=== PATIENT | male | born 1980 | race Caucasian/White ===

== ENCOUNTER 2023-12-15 09:27 | Emergency (ER) | payer MEDICAID, OTHER ==
[~2023-12-15] VITALS: Ht 185.4 cm; Wt 97.1 kg
[2023-12-15 10:57] VITALS: BP 148/98; PULSE 82; RESP 16; TEMP 98.8; O2SAT 98
[2023-12-15] MEDS ORDERED: IBUP1TAB5 PO (12:01)
[2023-12-15] MEDS ORDERED: HYDR1TAB97 PO (12:02)
[2023-12-15] MEDS ORDERED: HYDR-4902 PO (12:31)
== END 2023-12-15 12:34 | disposition home or self-care (01) ==
LOC: ER 09:27
DX: S62.394A Other fracture of fourth metacarpal bone, right hand, initial encounter for closed fracture (principal); Z79.899 Other long term (current) drug therapy; W22.01XA Walked into wall, initial encounter; Y93.89 Activity, other specified; Y92.89 Other specified places as the place of occurrence of the external cause; Y99.8 Other external cause status
CPT/HCPCS: 73130

== ENCOUNTER 2025-05-30 10:38 | Inpatient (IN) | payer MEDICAID ==
[~2025-05-30] VITALS: Ht 185.4 cm; Wt 91.4 kg
[~2025-05-30 10:38] MED LIST: HYDR-4902 PO; IBUP1TAB5 PO
--- NOTE | 2025-05-30 11:04 | ED.PDOC ---
GI ASSESSMENT HPI Comments 44 y/o M, with PMHx of pancreatitis presents to the ED for CC of abdominal pain. Patient states, he has been experiencing epigastric abdominal pain that radiates to his LLQ with associated nausea/vomiting [id number]. Patient reports, being unable to keep down solids and has only been able to maintain liquids. Patient describes, emesis to be "green" and "bile" like in appearance. Patient denies constipation, diarrhea, fever, chills, weakness, or fatigue. No other symptoms or modifying factors are present at this time. Chief Complaint: Abdominal Pain Time Seen by MD: 11:00 Primary Care Provider: NONE Reviewed Notes: Nurses Notes, Medications, Allergies Allergies: Coded Allergies: NO KNOWN ALLERGIES (Unverified , 12/15/23) Home Meds Active Scripts Hydrocodone-Acetaminophen (Hydrocodone Bitartrate/AC 5-325 mg) 1 Tab Tab, 1 TAB PO Q6HPRN PRN for 7 Days, #28 TAB 0 Refills Prov:HONORIO RIVERA CHANNELER INSOLE 12/15/23 Ibuprofen Micronized (Ibuprofen) 600 Mg Tab, 600 MG PO TIDWM for 10 Days, #30 TAB 0 Refills Prov:HONORIO RIVERA CHANNELER INSOLE 12/15/23 Information Source: Patient Mode of Arrival: Ambulatory Timing: Weeks Duration: Since onset Prehospital treatment: None Vomitus: Watery Stool: Normal Severity: Moderate Recent: None Recent Hx of: None Pain Location: Epigastric, LLQ Modifying Factors: Nothing Associated sign and symptoms: Nausea, Vomiting, Abdominal Pain Past Medical History PAST MEDICAL HISTORY: Denies Surgical History: Denies all surgeries Family History Family History: Unknown Social History Smoker: Non-Smoker Alcohol: Occasionally Drugs: Denies Drug Use Lives In: Home Constitutional: denies: chills, diaphoresis, fatigue, fever, malaise, sweats, weakness, others EENTM: denies: blurred vision, double vision, ear bleeding, ear discharge, ear drainage, ear pain, ear ringing, eye pain, eye redness, hearing loss, mouth pain, mouth swelling, nasal discharge, nose bleeding, nose congestion, nose pain, photophobia, tearing, throat pain, throat swelling, voice changes, others Respiratory: denies: cough, hemoptysis, orthopnea, SOB at rest, shortness of breath, SOB with excertion, stridor, wheezing, others Cardiovascular: denies: chest pain, dizzy spells, diaphoresis, Dyspnea on exertion, edema, irregular heart beat, left arm pain, lightheadedness, palpitations, PND, syncope, others Gastrointestinal: reports: abdominal pain, nausea, vomiting; denies: abdomen distended, blood streaked bowels, constipated, diarrhea, dysphagia, difficulty swallowing, hematemesis, melena, poor appetite, poor fluid intake, rectal bleeding, rectal pain, others Genitourinary: denies: burning, dysuria, flank pain, frequency, hematuria, incontinence, penile discharge, penile sore, pain, testicle pain, testicle swelling, urgency, others Neurological: denies: dizziness, fainting, headache, left sided numbness, left sided weakness, numbness, paresthesia, pre-existing deficit, right sided numbness, right sided weakness, seizure, speech problems, tingling, tremors, weakness, others Musculoskeletal: denies: back pain, gout, joint pain, joint swelling, muscle pain, muscle stiffness, neck pain, others Integumetry: denies: bruises, change in color, change in hair/nails, dryness, laceration, lesions, lumps, rash, wounds, others Allergic/Immunocompromised: denies: Difficulty Healing, Frequent Infections, Hives, Itching, others Hematologic/Lymphatic: denies: anemia, blood clots, easy bleeding, easy bruising, swollen glands, others Endocrine: denies: excessive hunger, excessive sweating, excessive thirst, excessive urination, flushing, intolerance to cold, intolerance to heat, unexplained weight gain, unexplained weight loss, others Psychiatric: denies: anxiety, bipolar disorder, depression, hopeless, panic dis order, schizophrenia, sleepless, suicidal, others All Other Systems: Reviewed and Negative Physical Exam General Appearance: Moderate Distress HEENT: Normal ENT Inspection, Pharynx Normal, TMs Normal Neck: Full Range of Motion, Non-Tender, Normal, Normal Inspection Respiratory: Chest Non-Tender, Lungs Clear, No Accessory Muscle Use, No Respiratory Distress, Normal Breath Sounds Cardiovascular: No Edema, No JVD, No Murmur, No Gallop, Normal Peripheral Pulses, Regular Rate/Rhythm Breast Exam: Deferred Gastrointestinal: No Organomegaly, Non Tender, No Pulsatile Mass, Normal Bowel Sounds, Soft Genitalia: Deferred Pelvic: Deferred Rectal: Deferred Extremities: No calf tenderness, Normal capillary refill, Normal inspection, Normal range of motion, Non-tender, No pedal edema Musculoskeletal : Apperance: Normal Neurologic: Alert, winderman II-XII nml as Tested, No Motor Deficits, Normal Affect, Normal Mood, No Sensory Deficits Cerebellar Function: Normal Reflexes: Normal Skin: Dry, Normal Color, Warm Peripheral Pulses: 3+ Radial (R), 3+ Radial (L) Lymphatic: No Adenopathy Was a procedure done? Was a procedure done?: No GI differential Dx Differential Diagnosis: Constipation, Diverticular disease, Esophagitis, Gastritis/PUD, Gastroenteritis, Pancreatitis, Bacterial, Viral X-Ray, Labs, Meds, VS Vital Signs Date Time Temp Pulse Resp B/P (MAP) Pulse Ox O2 Delivery O2 Flow Rate FiO2 05/30/25 13:24 98.2 84 16 162/119 (133) 96 98.2 05/30/25 11:24 81 18 98 Room Air 05/30/25 11:24 98.6 81 18 145/113 (124) 98 98.6 05/30/25 10:39 98.3 91 18 168/87 96 98.3 Lab Test 05/30/25 11:15 05/30/25 11:11 Range/Units Urine Color Yellow Yellow Urine Clarity Clear Clear Urine pH 6.5 5.0-9.0 Urine Specific [place] 1.014 1.001-1.035 Urine Protein Negative Negative Urine Ketones Negative Negative Urine Blood Negative Negative /uL Urine Nitrite Negative Negative Urine Bilirubin Negative Negative Urine Urobilinogen Normal Negative mg/dL Urine Leukocyte Esterase Negative Negative /uL Urine RBC 1 0 - 3 /hpf Urine Microscopic WBC < 1 0-3 /HPF Urine Squamous Epithelial Cells None seen <5 /hpf Urine Bacteria None seen None Seen /hpf Urine Glucose Normal Normal mg/dL White Blood Count 4.9 4.4-10.8 10^3/uL Red Blood Count 4.80 4.5-5.90 10^6/uL Hemoglobin 15.8 13.5-17.5 g/dL Hematocrit 45.4 41.0-53.0 % Mean Corpuscular Volume 94.5 80.0-100.0 fL Mean Corpuscular Hemoglobin 32.9 H 28.0-32.0 pg Mean Corpuscular Hemoglobin Concent 34.8 32.0-36.0 g/dL Red Cell Distribution Width 14.9 H 11.8-14.3 % Platelet Count 185 140-450 10^3/uL Mean Platelet Volume 8.7 6.9-10.8 fL Neutrophils (%) (Auto) 68.7 37.0-80.0 % Lymphocytes (%) (Auto) 13.2 10.0-50.0 % Monocytes (%) (Auto) 16.4 H 0.0-12.0 % Eosinophils (%) (Auto) 0.7 0.0-7.0 % Basophils (%) (Auto) 1.0 0.0-2.0 % Neutrophils # (Auto) 3.4 1.6-8.6 10 ^3/uL Lymphocytes # (Auto) 0.6 0.4-5.4 10 ^3/uL Monocytes # (Auto) 0.8 0-1.3 10 ^3/uL Eosinophils # (Auto) 0 0-0.8 10 ^3/uL Basophils # (Auto) 0.1 0-0.2 10 ^3/uL Nucleated Red Blood Cells 0.0 % Sodium Level 139 136-145 mmol/L Potassium Level 3.9 3.5-5.1 mmol/L Chloride Level 100 98-107 mmol/L Carbon Dioxide Level 28 20-31 mmol/L Anion Gap 11 5-15 Blood Urea Nitrogen 6 L 9-23 mg/dL Creatinine 1.00 0.700-1.30 mg/dL Glomerular Filtration Rate Calc 96 >90 mL/min BUN/Creatinine Ratio 6.0 L 10.0-20.0 Serum Glucose 98 74-106 mg/dL Calcium Level 9.6 8.7-10.4 mg/dL Total Bilirubin 1.3 H 0.2-1.0 mg/dL Aspartate Amino Transferase (AST) 119 H 13-40 U/L Alanine Aminotransferase (ALT) 150 H 7-40 U/L Alkaline Phosphatase 76 46-116 U/L Total Protein 8.1 5.7-8.2 g/dL Albumin 4.7 3.2-4.8 g/dL Lipase 57 H 12-53 U/L Current Medications Medications (Trade) Dose Ordered Sig/Christiano Route Start Time Stop Time Status Last Admin Pantoprazole Sodium (Protonix) 40 mg ONCE ONCE IV 05/30/25 11:00 05/30/25 11:02 DC 05/30/25 11:26 Patient alert. Complaining of abdominal pain. Vitals stable. Answering questions. Possible gastritis. Was given Protonix. Lipase elevated. Explained to the patient. Continue monitoring. Time of 1ST Reevaluation: 11:30 Reevaluation 1ST: Unchanged Patient Education/Counseling: Diagnosis, Treatment Family Education/Counseling: No Family Present SEPSIS Sepsis Screen Date sepsis recognized/suspect: May 30, 2025 Time Sepsis recognized/suspect: 1039 Recent Procedure: No On Antibiotic Therapy: No Respiratory Rate >20: No Heart Rate >90: Yes Temp<36 C (96.8 F) or >38.3 C: No SBP <90 or MAP <65 mmHG: No New Acute Mental Status Change: No Is the patient on CPAP, BIPAP,: No Vital Signs Date Time Temp Pulse Resp B/P (MAP) Pulse Ox O2 Delivery O2 Flow Rate FiO2 05/30/25 13:24 98.2 84 16 162/119 (133) 96 98.2 05/30/25 11:24 81 18 98 Room Air 05/30/25 11:24 98.6 81 18 145/113 (124) 98 98.6 05/30/25 10:39 98.3 91 18 168/87 96 98.3 Laboratory Tests Test 05/30/25 11:11 White Blood Count 4.9 10^3/uL (4.4-10.8) Medications Medications Dose Ordered Sig/Christiano Route Start Time Stop Time Status Last Admin Dose Admin Pantoprazole Sodium 40 mg ONCE ONCE IV 05/30/25 11:00 05/30/25 11:02 DC 05/30/25 11:26 Departure 1 Departure Time of Disposition: 11:11 Impression: Primary Impression: Acute abdominal pain Additional Impression: Acute pancreatitis Qualified Codes: K85.90 - Acute pancreatitis without necrosis or infection, unspecified Disposition: ADMITTED INPATIENT Admit to: Med Surg Condition: Guarded Critical Care Note Critical Care Time?: No Stability Stability form required: No Heart Score Heart Score: Heart Score Response (Comments) Value History N/A 0 EKG N/A 0 Age N/A 0 Risk Factors N/A 0 Troponin N/A 0 Total 0 I personally scribed for YURI RANDOLPH MD ([email or web address]) on 05/30/25 at 11:04. Electronically submitted by Elodia [email or web address]). YURI RANDOLPH MD May 30, 2025 11:04
[2025-05-30] MEDS: PANTOPRAZOLE 40 MG/10 ML VIAL INJ IV ONE (11:26)
[2025-05-30 11:36] LABS: Hematocrit 45.4 % (41.0-53.0); Hemoglobin 15.8 g/dL (13.5-17.5); Mean Corpuscular Hemoglobin 32.9 pg (28.0-32.0); Mean Corpuscular Volume 94.5 fL (80.0-100.0); Nucleated Red Blood Cells % 0.0 %
[2025-05-30 11:52] LABS: Albumin 4.7 g/dL (3.2-4.8); Alkaline Phosphatase 76 U/L (46-116); Anion Gap 11 (5-15); BUN/Creatinine Ratio 6.0 (10.0-20.0); Calcium 9.6 mg/dL (8.7-10.4); Carbon Dioxide 28 mmol/L (20-31); Chloride 100 mmol/L (98-107); Glucose 98 mg/dL (74-106); Potassium 3.9 mmol/L (3.5-5.1); Sodium 139 mmol/L (136-145); Total Protein 8.1 g/dL (5.7-8.2)
[2025-05-30 11:59] LABS: Alanine Aminotransferase 150 U/L (7-40); Bilirubin, Total 1.3 mg/dL (0.2-1.0); Blood Urea Nitrogen 6 mg/dL (9-23); Lipase 57 U/L (12-53)
[2025-05-30 12:20] LABS: Urine Protein, UAD Negative (Negative)
[2025-05-30 16:10] VITALS: PULSE 108; RESP 19; O2SAT 98
[2025-05-30] MEDS: SODIUM CHLORIDE 0.9% 1,000 ML IV SCH (16:23)
[2025-05-30] MEDS: MORPHINE SULFATE 4 MG/ML SYR/VIAL IV PRN (16:23)
[2025-05-30] MEDS: ONDANSETRON HCL 4 MG/2 ML VIAL IM ONE (16:23)
--- NOTE | 2025-05-30 16:28 | DVHHPRES ---
History of Present Illness Resident Creating Document: LAYNE MAC RESIDENT History of Present Illness 44-year-old male with past medical history of chronic pancreatitis on lipase, IBS, hiatal hernia (7 cm) presented to the ER with the complaints of epigastric,left upper and left lower quadrant pain since last 2 weeks, associated with intractable nausea and vomiting. He reports the pain aggravates on eating especially with dry food, after vomiting and relieves by leaning forward and taking ibuprofen and Tylenol. The pain radiates to umbilicus before bowel movement. The patient describes the pain starts gradually and becomes sharp, currently 7/10 in intensity. He describes the vomiting is bilious and greenish in color, not mixed with blood The patient has recently done a colonoscopy with a single polyp, which was removed, with no other abnormalities. He has done CT scan of the abdomen with gastro group [facility], which was unremarkable except hiatal hernia. The patient measures his blood pressure at home which is high systolic in 140s and diastolic in 110s. 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 Past surgical history: Appendectomy, left hand metal placed due to left 4th metacarpal fracture, (however, previous x-ray shows right-sided 4th metacarpal fracture?) Home medications: Pancrelipase (Creon), pantoprazole Allergies: None Smoking history: Quit 17 years ago, before quitting 5 pack years Methamphetamine: Quit 7 years ago, before quitting occasional Marijuana: Quit 2 months ago, before quitting occasionally since age 19. Alcohol: Drinks over the weekends 2 cans at a time. Review of Systems Gastrointestinal: Nausea, Vomiting, Abdominal Pain, Diarrhea Allergies: Coded Allergies: NO KNOWN ALLERGIES (Unverified , 12/15/23) Medications Current Medications Medications Dose Ordered Sig/Christiano Route Start Time Stop Time Status Last Admin Dose Admin Sodium Chloride 1,000 ml @ 120 mls/hr Q8H20M IV 05/30/25 15:45 Morphine Sulfate 2 mg Q4HPRN PRN IV 05/30/25 15:45 Ondansetron HCl 4 mg Q8HPRN PRN IV 05/30/25 15:45 Pantoprazole Sodium 40 mg DAILY IV 05/31/25 10:00 UNV Exam Vital Signs Vital Signs Date Time Temp Pulse Resp B/P (MAP) Pulse Ox O2 Delivery O2 Flow Rate FiO2 05/30/25 15:54 97.8 102 16 153/97 (115) 100 97.8 05/30/25 11:24 Room Air Exam Pt is lying on bed General Appearance: Alert, Oriented X3, Cooperative, Mild distress HEENT: Atraumatic, Mucous membranes moist/pink Respiratory: Clear to auscultation, Normal air movement, No added sounds Cardiovascular: Regular rate, Normal S1, Normal S2, No murmurs Abdominal/ : Active bowel sounds, Soft, no distention, epigastric, left upper and lower quadrants tenderness Extremities: No edema, Normal pulses, No tenderness/swelling Skin: No Significant rash, except past surgical scars Neuro: Normal speech, sensorimotor deficits none Psych/Mental Status: Mental status NL, Mood NL Nurse was there as food and nutrition professor during examination Labs/Xrays Labs Test 05/30/25 11:15 05/30/25 11:11 Range/Units Urine Color Yellow Yellow Urine Clarity Clear Clear Urine pH 6.5 5.0-9.0 Urine Specific [place] 1.014 1.001-1.035 Urine Protein Negative Negative Urine Ketones Negative Negative Urine Blood Negative Negative /uL Urine Nitrite Negative Negative Urine Bilirubin Negative Negative Urine Urobilinogen Normal Negative mg/dL Urine Leukocyte Esterase Negative Negative /uL Urine RBC 1 0 - 3 /hpf Urine Microscopic WBC < 1 0-3 /HPF Urine Squamous Epithelial Cells None seen <5 /hpf Urine Bacteria None seen None Seen /hpf Urine Glucose Normal Normal mg/dL White Blood Count 4.9 4.4-10.8 10^3/uL Red Blood Count 4.80 4.5-5.90 10^6/uL Hemoglobin 15.8 13.5-17.5 g/dL Hematocrit 45.4 41.0-53.0 % Mean Corpuscular Volume 94.5 80.0-100.0 fL Mean Corpuscular Hemoglobin 32.9 H 28.0-32.0 pg Mean Corpuscular Hemoglobin Concent 34.8 32.0-36.0 g/dL Red Cell Distribution Width 14.9 H 11.8-14.3 % Platelet Count 185 140-450 10^3/uL Mean Platelet Volume 8.7 6.9-10.8 fL Neutrophils (%) (Auto) 68.7 37.0-80.0 % Lymphocytes (%) (Auto) 13.2 10.0-50.0 % Monocytes (%) (Auto) 16.4 H 0.0-12.0 % Eosinophils (%) (Auto) 0.7 0.0-7.0 % Basophils (%) (Auto) 1.0 0.0-2.0 % Neutrophils # (Auto) 3.4 1.6-8.6 10 ^3/uL Lymphocytes # (Auto) 0.6 0.4-5.4 10 ^3/uL Monocytes # (Auto) 0.8 0-1.3 10 ^3/uL Eosinophils # (Auto) 0 0-0.8 10 ^3/uL Basophils # (Auto) 0.1 0-0.2 10 ^3/uL Nucleated Red Blood Cells 0.0 % Sodium Level 139 136-145 mmol/L Potassium Level 3.9 3.5-5.1 mmol/L Chloride Level 100 98-107 mmol/L Carbon Dioxide Level 28 20-31 mmol/L Anion Gap 11 5-15 Blood Urea Nitrogen 6 L 9-23 mg/dL Creatinine 1.00 0.700-1.30 mg/dL Glomerular Filtration Rate Calc 96 >90 mL/min BUN/Creatinine Ratio 6.0 L 10.0-20.0 Serum Glucose 98 74-106 mg/dL Calcium Level 9.6 8.7-10.4 mg/dL Total Bilirubin 1.3 H 0.2-1.0 mg/dL Aspartate Amino Transferase (AST) 119 H 13-40 U/L Alanine Aminotransferase (ALT) 150 H 7-40 U/L Alkaline Phosphatase 76 46-116 U/L Total Protein 8.1 5.7-8.2 g/dL Albumin 4.7 3.2-4.8 g/dL Lipase 57 H 12-53 U/L SEPSIS Sepsis Screen Date sepsis recognized/suspect: May 30, 2025 Time Sepsis recognized/suspect: 1039 Recent Procedure: No On Antibiotic Therapy: No Respiratory Rate >20: No Heart Rate >90: Yes Temp<36 C (96.8 F) or >38.3 C: No SBP <90 or MAP <65 mmHG: No New Acute Mental Status Change: No Is the patient on CPAP, BIPAP,: No Physician Orders Admit (05/30/25 15:42) Code Status (05/30/25 15:42) Sodium Chloride 0.9% (05/30/25 15:45) Complete Blood Count (05/31/25 04:00) Comprehensive Metabolic Panel (05/31/25 04:00) Npo (Nothing By Mouth) Diet (05/30/25 Dinner) Ondansetron Hcl (Zofran) (05/30/25 15:45) Electrocardigram (05/30/25 15:42) Notify Of Changes From Base (05/30/25 15:42) Stool Bacterial Culture (05/30/25 15:50) Stool Wbc (05/30/25 15:50) Clostridium Difficile Toxin (05/30/25 15:50) Morphine Sulfate Injection (05/30/25 15:45) Ct Ab Pel Wo Con-No Oral Or Iv (05/30/25 16:18) Gallbladder (05/30/25 16:18) Lipid Panel (05/30/25 16:18) Acute Hepatitis Panel (05/30/25 16:18) Hepatitis C Antibody (05/30/25 16:18) Lipase (05/30/25 16:18) PTPTT (05/30/25 16:18) Drug Screen (05/30/25 16:18) Pantoprazole (Protonix) (05/31/25 10:00) Lactic Acid W/ Reflex Order (05/30/25 16:18) Lactate Dehydrogenase (05/30/25 16:18) Vital Signs Date Time Temp Pulse Resp B/P (MAP) Pulse Ox O2 Delivery O2 Flow Rate FiO2 05/30/25 15:54 97.8 102 16 153/97 (115) 100 97.8 05/30/25 13:24 98.2 84 16 162/119 (133) 96 98.2 05/30/25 11:24 81 18 98 Room Air 05/30/25 11:24 98.6 81 18 145/113 (124) 98 98.6 05/30/25 10:39 98.3 91 18 168/87 96 98.3 Laboratory Tests Test 05/30/25 11:11 White Blood Count 4.9 10^3/uL (4.4-10.8) Medications Medications Dose Ordered Sig/Christiano Route Start Time Stop Time Status Last Admin Dose Admin Pantoprazole Sodium 40 mg ONCE ONCE IV 05/30/25 11:00 05/30/25 11:02 DC 05/30/25 11:26 40 MG Assessment/Plan Assessment/Plan Acute pancreatitis Gastritis IV fluid Lipase CT abdomen and pelvis Lactic acid ordered, pending results IV pantoprazole IV ondansetron for nausea and vomiting IV morphine for intractable abdominal pain Lipid profile sent Dehydration due to diarrhea secondary to gastroenteritis IV fluid Stool WBC, bacterial culture, C diff sent Undiagnosed hypertension? Monitor blood pressures and labs Initiate antihypertensive if necessary GI prophylaxis: Pantoprazole DVT prophylaxis: Not indicated, patient is ambulatory Diet: NPO Goals of care discussed with the patient for more than 27 minutes: Full code status Case discussed with , Dr. Roblero, Dr. Fish, patient and RN Plan discussed with: Patient, Other (RN) My Orders Orders - ESTEFANIA,LAYNE RESIDENT Procedure Category Date Status Time Admit ADMIT 05/30/25 Transmitted 15:42 Code Status CODE 05/30/25 Transmitted 15:42 Sodium Chloride 0.9% PHA 05/30/25 In Process 15:45 Complete Blood Count LAB 05/31/25 Verified 04:00 Comprehensive LAB 05/31/25 Verified Metabolic Panel 04:00 Npo (Nothing By DIET 05/30/25 Transmitted Mouth) Diet Dinner Ondansetron Hcl PHA 05/30/25 In Process (Zofran) 15:45 Electrocardigram EKG 05/30/25 Verified 15:42 Notify Md Of Changes JASWINDER 05/30/25 Verified From Base 15:42 Stool Bacterial STALIN 05/30/25 Uncollected Culture 15:50 Stool Wbc LAB 05/30/25 Logged 15:50 Clostridium Difficile STALIN 05/30/25 Uncollected Toxin 15:50 Morphine Sulfate PHA 05/30/25 In Process Injection 15:45 Ct Ab Pel Wo Con-No CT 05/30/25 Logged Oral Or Iv 16:18 Gallbladder US 05/30/25 Logged 16:18 Lipid Panel LAB 05/30/25 Logged 16:18 Acute Hepatitis Panel LAB 05/30/25 Logged 16:18 Hepatitis C Antibody LAB 05/30/25 Logged 16:18 Lipase LAB 05/30/25 Logged 16:18 PTPTT LAB 05/30/25 Logged 16:18 Drug Screen LAB 05/30/25 Logged 16:18 Pantoprazole PHA 05/31/25 Transmitted (Protonix) 10:00 Lactic Acid W/ Reflex LAB 05/30/25 Logged Order 16:18 Lactate Dehydrogenase LAB 05/30/25 Logged 16:18 Date of Service: May 30, 2025 Billing Provider: JUSTINA ALVAREZ MD Common Visit Codes: 67776-BUNZATU INP/OBS CARE (HIGH) Secondary Visit Codes: 34160-IVBOPHPT CARE PLAN 30 MINUTES ESTEFANIALAYNE RESIDENT May 30, 2025 16:27 JUSTINA ALVAREZ MD Jun 06, 2025 20:19
[2025-05-30 16:39] VITALS: PULSE 79; RESP 16; O2SAT 97
--- NOTE | 2025-05-30 17:41 | DVH ---
Indication: r/o acute pancreatitis Technique: CT axial images of the abdomen and pelvis are obtained without contrast. Coronal and sagit priscilla reformats were obtained. Radiation Dose Information: CTDI volume is 15.94 mGy. Dose-length product is 882.69 mGy*cm Comparison: None FINDINGS: There is limited interpretation of the abdomen and pelvis without administration of intravenous contr ast. The lung bases demonstrate no pleural effusion. Adrenal glands, spleen, pancreas unremarkable in shape. Severe hepatic steatosis. No CT evidence fo r cholelithiasis. There is no hydronephrosis/ nephrolithiasis. Left renal cyst measuring 2.5 cm. Small hiatal hernia. Stomach partially distended. Small bowel loops are normal in caliber. Moderate volume stool in the colon. No secondary signs for appendicitis. Appendicolith measuring 4 mm in diameter. Bladder partially distended. No free pelvic fluid. No inguinal lymphadenopathy. No aggressive osseous process. IMPRESSION: Limited evaluation without contrast. No CT imaging features of acute pancreatitis. Severe hepatic steatosis. 4 mm appendicolith. No evidence for acute appendicitis. Hiatal hernia. Other findings as described.
[2025-05-30 17:49] VITALS: TEMP 97.8
[2025-05-30 17:55] LABS: Triglycerides 80 mg/dL (< 150)
[2025-05-30 17:57] LABS: Cholesterol 199 mg/dL (< 200)
[2025-05-30 18:08] LABS: INR 1.08 (0.9-1.15); Partial Thromboplastin Time 24.9 SEC (24.5-34.5); Prothrombin Time 11.4 sec (9.3-11.8)
[2025-05-30 18:14] LABS: HDL Cholesterol 69 mg/dL (40-59); Lipase 37 U/L (12-53)
--- NOTE | 2025-05-30 18:17 | DVH ---
ABDOMINAL ULTRASOUND CLINICAL HISTORY: Transaminitis TECHNIQUE: Multiple grayscale and color Doppler ultrasound images were obtained of the abdomen. WID: COMPARISON: CT abdomen pelvis from same day FINDINGS: Liver and Biliary System: Increased echogenicity, normal size measuring 16.5 cm. No focal hepatic observations. No intrahepatic bile duct dilatation. The common duct measures 0.47 cm at the rangel h epatis. The gallbladder is normal caliber without wall thickening or cholelithiasis.. Pancreas: Visualized portions are unremarkable. Kidneys: The right kidney is 11.1 cm . No hydronephrosis, increased echogenicity, shadowing stone, or focal lesion. IMPRESSION: 1. Hepatic steatosis. 2. No acute cholecystitis or biliary ductal dilatation.
[2025-05-30] MEDS ORDERED: PANC3600 PO (18:38)
[2025-05-30] MEDS ORDERED: PANC1CAP PO (18:38)
[2025-05-30] MEDS ORDERED: PANT40T PO (18:38)
[2025-05-30 20:00] VITALS: PULSE 63; RESP 16; O2SAT 97
[2025-05-30 21:00] VITALS: BP 142/101; PULSE 63; RESP 16; TEMP 98.1; O2SAT 97
[2025-05-30 21:47] LABS: Amphetamine Screen, Urine Neg (NEGATIVE); Barbiturate Scree,Urine Neg (NEGATIVE); Benzodiazephine Screen, Urine Neg (NEGATIVE); Cannabinoid Screen, Urine Neg (NEGATIVE); Cocaine Screen, Urine Neg (NEGATIVE); Opiate Scree,Urine Neg (NEGATIVE); Phencyclidine Screen, Urine Neg (NEGATIVE)
[2025-05-31] VITALS (7 sets, daily range): BP systolic 100–156; BP diastolic 69–108; PULSE 64–84; RESP 16–19; TEMP 97.6–98.2; O2SAT 96–99
[2025-05-31] MEDS: ONDANSETRON HCL 4 MG/2 ML VIAL IV PRN (00:48)
[2025-05-31] MEDS: METOCLOPRAMIDE HCL 5MG/ml INJ 2ml VIAL IV ONE (04:01)
[2025-05-31 07:44] LABS: Hematocrit 40.7 % (41.0-53.0); Hemoglobin 13.9 g/dL (13.5-17.5); Mean Corpuscular Hemoglobin 32.8 pg (28.0-32.0); Mean Corpuscular Volume 95.9 fL (80.0-100.0)
[2025-05-31 07:54] LABS: Alkaline Phosphatase 65 U/L (46-116); Anion Gap 9 (5-15); BUN/Creatinine Ratio 8.3 (10.0-20.0); Blood Urea Nitrogen 9 mg/dL (9-23); Calcium 8.8 mg/dL (8.7-10.4); Carbon Dioxide 28 mmol/L (20-31); Chloride 101 mmol/L (98-107); Glucose 86 mg/dL (74-106); Potassium 4.0 mmol/L (3.5-5.1); Sodium 138 mmol/L (136-145); Total Protein 6.9 g/dL (5.7-8.2)
[2025-05-31 07:55] LABS: Albumin 4.0 g/dL (3.2-4.8)
[2025-05-31 08:04] LABS: Alanine Aminotransferase 116 U/L (7-40); Bilirubin, Total 1.4 mg/dL (0.2-1.0)
[2025-05-31] MEDS: PANTOPRAZOLE 40 MG/10 ML VIAL INJ IV SCH (09:26)
[2025-05-31 10:00] LABS: Total Cells Counted 100.0 (100)
[2025-05-31 10:01] LABS: RBC Morphology Normal
[2025-05-31 10:20] LABS: Hepatitis B Surface Antigen Negative (Negative); Hepatitis C Antibody Negative (Negative)
[2025-05-31] MEDS ORDERED: METOCLOPRAMIDE HCL 5MG/ml INJ 2ml VIAL IV PRN (11:00)
[2025-05-31] MEDS: SUCRALFATE 1 GM/10 ML ORAL SUSP PO SCH (12:48)
--- NOTE | 2025-05-31 17:08 | DVH ---
Exam: CT CT AB PEL WITH IV CON ONLY History: epigastric pain, dysphagia, unintentional wt loss, h/omelena Comparison Study: None TECHNIQUE: Multidetector CT of the abdomen was performed from lung bases to pubic symphysis. Imaging was performed without IV contrast. Axial, coronal and sagittal multiplanar reformats were obtained fr om the axial data set by the technologist. Radiation Dose Information: CT Dose: CTDI volume is 9.62 mGy. Dose-length product is 610.76 mGy*cm FINDINGS: Evaluation of solid organs is limited due to lack of intravenous contrast use. Findings: Lung Bases: No acute or significant lung base finding. Normal heart size. No pleural or pericardial effusion. Liver: The liver is normal in size. No focal lesions. Findings consistent with hepatic steatosis. Gallbladder and Biliary Tree: No calcified gallstones. Spleen: Unremarkable Pancreas: The pancreas is grossly normal in appearance. Adrenal Glands: Unremarkable Kidneys: Kidneys are grossly normal without calculi or hydronephrosis. 0.5 cm left cortical cyst Bladder: Grossly unremarkable for degree of distention. Bowel: The stomach is grossly normal in appearance. Small hiatal hernia Small bowel and colon are nor mal in caliber and distribution. The appendix is not visualized; however, no secondary findings of a cute appendicitis identified. Ascites: Absent Lymphadenopathy: No mesenteric, retroperitoneal or periportal lymphadenopathy. Abdominal Wall and Mesentery: Unremarkable. Vasculature: The visualized abdominal aorta is normal in size and caliber. Evaluation of abdominal a nd pelvic vessels is limited due to lack of intravenous contrast. Pelvic Organs: Unremarkable Musculoskeletal: No aggressive focal bony lesions, acute fractures or dislocation. Vertical striation s noted T 11 and T12 may represent osseous hemangiomas. No compressed vertebra. Soft tissues: Unremarkable IMPRESSION: 1. Small hiatal hernia with thickened wall of the distal esophagus. May represent esophagitis from re current reflux. 2. Pancreas appears normal 3. Hepatic steatosis 4. 2 cm left renal cyst 5. No findings to suggest bowel obstruction. 6. No calcified gallstones. HS:Y Radiation optimization: All CT scans at this facility use at least one of these dose optimization aliza hniques: automated exposure control mA and/or kV adjustment per patient size (includes targeted exam s where dose is matched to clinical indication) or iterative reconstruction.
--- NOTE | 2025-05-31 17:19 | DVHPNRES ---
Progress Note Date Seen: May 31, 2025 Resident Creating Document: LAYNE MAC RESIDENT Medical Necessity Reason Pt with a Central, PICC or Fol: No Subjective Review of Systems 44-year-old male with past medical history of chronic pancreatitis on lipase, IBS, hiatal hernia (7 cm) presented to the ER with the complaints of epigastric,left upper and left lower quadrant pain since last 2 weeks, associated with intractable nausea and vomiting. He reports the pain aggravates on eating especially with dry food, after vomiting and relieves by leaning forward and taking ibuprofen and Tylenol. The pain radiates to umbilicus before bowel movement. The patient describes the pain starts gradually and becomes sharp, currently 7/10 in intensity. He describes the vomiting is bilious and greenish in color, not mixed with blood The patient has recently done a colonoscopy with a single polyp, which was removed, with no other abnormalities. He has done CT scan of the abdomen with gastro group [facility] [place], which was unremarkable except hiatal hernia. The patient measures his blood pressure at home which is high systolic in 140s and diastolic in 110s. 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 The patient reports losing 20 lb weight unintentionally within last 2 months. He reports having difficulty swallowing dry food. He reports having dark stool, with a black spots floating on the toilet water. But the stool is not tarry black. Past surgical history: Appendectomy, Right hand metal placed due to right 4th metacarpal fracture, Home medications: Pancrelipase (Creon), pantoprazole Allergies: None Smoking history: Quit 17 years ago, before quitting 5 pack years Methamphetamine: Quit 7 years ago, before quitting occasional Marijuana: Quit 2 months ago, before quitting occasionally since age 19. Alcohol: Drinks over the weekends 2 cans at a time. The patient was seen and examined at bedside today. He reports improvement in his nausea, he could tolerate full liquid diet. However he reports having episodes of severe abdominal pain, partially relieved by IV morphine. The treatment plan was discussed with the patient. No new complaints reported today. Objective vital signs Vital Sign Date Time Temp Pulse Resp B/P (MAP) Pulse Ox O2 Delivery O2 Flow Rate FiO2 05/31/25 16:29 98.1 64 17 155/107 (123) 99 98.1 05/31/25 08:15 Room Air* 0 21 Total Intake and Output 05/30/25 05/30/25 05/31/25 15:00 23:00 07:00 Intake Total 1000 ml Balance 1000 ml medications Current Medications Medications Dose Ordered Sig/Christiano Route Start Time Stop Time Status Last Admin Dose Admin Sodium Chloride 1,000 ml @ 120 mls/hr Q8H20M IV 05/30/25 15:45 05/31/25 09:35 120 MLS/HR Morphine Sulfate 2 mg Q4HPRN PRN IV 05/30/25 15:45 05/31/25 15:01 2 MG Ondansetron HCl 4 mg Q8HPRN PRN IV 05/30/25 15:45 05/31/25 00:48 4 MG Pantoprazole Sodium 40 mg DAILY IV 05/31/25 10:00 05/31/25 09:26 40 MG Amlodipine Besylate 5 mg DAILY PO 05/31/25 10:00 05/31/25 12:49 5 MG Sucralfate 1 gm TID@0600,1130,2200 PO 05/31/25 11:30 05/31/25 12:48 1 GM Metoclopramide HCl 5 mg Q8HPRN PRN IV 05/31/25 11:00 Examination Exam Pt is lying on bed General Appearance: Alert, Oriented X3, Cooperative, Mild distress HEENT: Atraumatic, Mucous membranes moist/pink Respiratory: Clear to auscultation, Normal air movement, No added sounds Cardiovascular: Regular rate, Normal S1, Normal S2, No murmurs Abdominal/ : Active bowel sounds, Soft, no distention, epigastric, left upper and lower quadrants tenderness Extremities: No edema, Normal pulses, No tenderness/swelling Skin: No Significant rash, except past surgical scars Neuro: Normal speech, sensorimotor deficits none Psych/Mental Status: Mental status NL, Mood NL Nurse was there as financial center manager during examination laboratory and microbiology Laboratory Tests 05/31/25 07:05 Test 05/31/25 07:05 Range/Units Serum Glucose 86 74-106 mg/dL Labs and/or images reviewed: Labs reviewed by me, Image(s) reviewed by me Problem List/Assessment/Plan Problem List/Assessment/Plan Acute pancreatitis Gastritis with alarm symptoms IV fluid Lipase CT abdomen and pelvis Lactic acid ordered, pending results IV pantoprazole IV ondansetron for nausea and vomiting IV morphine for intractable abdominal pain Lipid profile sent CT abdomen pelvis: Hepatic steatosis, 4 mm appendicolith, hiatal hernia, no acute findings, no pancreatitis. Gallbladder ultrasound: Hepatic steatosis, no gallstones or cholecystitis. CT abdomen and pelvis with contrast ordered. Dehydration due to diarrhea secondary to gastroenteritis IV fluid Stool WBC, bacterial culture, C diff sent Undiagnosed hypertension? Monitor blood pressures and labs Initiate antihypertensive if necessary GI prophylaxis: Pantoprazole DVT prophylaxis: Not indicated, patient is ambulatory Diet: NPO Goals of care discussed with the patient for more than 27 minutes: Full code status Case discussed with , Dr. Roblero, Jhajj, patient and RN Plan discussed with: Patient, Other (RN) Plan discussed with: Patient, Other (RN) Date of Service: May 31, 2025 Billing Provider: JUSTINA ALVAREZ MD Common Visit Codes: [id number] INP/OBS CARE(HIGH) LAYNE MAC RESIDENT May 31, 2025 17:19 JUSTINA ALVAREZ MD Jun 06, 2025 20:20
[2025-06-01 01:04] VITALS: BP 144/98; PULSE 63; RESP 19; TEMP 97.9; O2SAT 98
[2025-06-01 05:00] VITALS: BP 143/98; PULSE 81; RESP 20; TEMP 97.2; O2SAT 98
[2025-06-01 07:57] LABS: Hematocrit 42.7 % (41.0-53.0); Hemoglobin 15.0 g/dL (13.5-17.5); Mean Corpuscular Hemoglobin 33.4 pg (28.0-32.0); Mean Corpuscular Volume 95.4 fL (80.0-100.0); Nucleated Red Blood Cells % 0.0 %
[2025-06-01 08:10] LABS: Albumin 4.2 g/dL (3.2-4.8); Alkaline Phosphatase 68 U/L (46-116); Anion Gap 11 (5-15); BUN/Creatinine Ratio 5.9 (10.0-20.0); Bilirubin, Total 1.1 mg/dL (0.2-1.0); Calcium 9.1 mg/dL (8.7-10.4); Carbon Dioxide 27 mmol/L (20-31); Chloride 100 mmol/L (98-107); Glucose 89 mg/dL (74-106); Potassium 4.0 mmol/L (3.5-5.1); Sodium 138 mmol/L (136-145); Total Protein 7.3 g/dL (5.7-8.2)
[2025-06-01 08:12] LABS: Alanine Aminotransferase 121 U/L (7-40); Blood Urea Nitrogen 6 mg/dL (9-23)
[2025-06-01 09:00] VITALS: BP 147/101; PULSE 59; RESP 18; TEMP 98; O2SAT 97
[2025-06-01 13:00] VITALS: BP 142/102; PULSE 64; RESP 18; TEMP 98; O2SAT 97
--- NOTE | 2025-06-01 14:08 | DVHINCON2 ---
GI Consult Consult Note GI consult note Date of Consultation: 06/01/2025 Chief Complaint: Acid reflux, likely gastritis with alarm symptoms weight loss, dysphagia, melena Referring Physician: Dr. Fish H&P: 44-year-old male with past medical history of chronic pancreatitis, IBS, hiatal hernia 7 cm presented with worsening symptoms of epigastric and left-sided abdominal pain for the past two weeks patient also has nausea and vomiting denies hematemesis. Patient has been symptoms on and off for the past two years and has seen gastro group status post colonoscopy with one polyp removed status post EGD diagnosed with hiatal hernia. Patient also complaining of loose stool which is dark in color stool test pending Patient is in the process of being referred to [facility] for possible hiatal hernia repair Past Medical History: Chronic pancreatitis, IBS, hiatal hernia Past Surgical History: Appendectomy, left hand metal placed left 4th metatarsal carpal fracture Social History: Smoking history: Quit 17 years ago, before quitting 5 pack years Methamphetamine: Quit 7 years ago, before quitting occasional Marijuana: Quit 2 months ago, before quitting occasionally since age 19. Alcohol: Drinks over the weekends 2 cans at a time. Family History: Noncontributory Review of Systems: Constitutional: no fever, chill, weight loss HEENT: no eye pain, no hearing loss, no oral lesion, no scleral icterus Heart: no chest pain, no chest pressure Lung: no cough, no dyspnea with exertion Abdomen: see HPI Physical exam: General: NAD, AAOX3 Chest: lung terrell clear to auscultation Heart: RRR, no murmur Abdomen: non-distended, no tenderness to palpation, +BS Labs: Labs Test 06/01/25 07:02 05/31/25 07:05 05/30/25 17:17 05/30/25 11:15 Range/Units White Blood Count 4.8 4.4-10.8 10^3/uL Red Blood Count 4.48 L 4.5-5.90 10^6/uL Hemoglobin 15.0 13.5-17.5 g/dL Hematocrit 42.7 41.0-53.0 % Mean Corpuscular Volume 95.4 80.0-100.0 fL Mean Corpuscular Hemoglobin 33.4 H 28.0-32.0 pg Mean Corpuscular Hemoglobin Concent 35.0 32.0-36.0 g/dL Red Cell Distribution Width 14.5 H 11.8-14.3 % Platelet Count 156 140-450 10^3/uL Mean Platelet Volume 9.1 6.9-10.8 fL Neutrophils (%) (Auto) 66.6 37.0-80.0 % Lymphocytes (%) (Auto) 14.3 10.0-50.0 % Monocytes (%) (Auto) 16.0 H 0.0-12.0 % Eosinophils (%) (Auto) 2.5 0.0-7.0 % Basophils (%) (Auto) 0.6 0.0-2.0 % Neutrophils # (Auto) 3.2 1.6-8.6 10 ^3/uL Lymphocytes # (Auto) 0.7 0.4-5.4 10 ^3/uL Monocytes # (Auto) 0.8 0-1.3 10 ^3/uL Eosinophils # (Auto) 0.1 0-0.8 10 ^3/uL Basophils # (Auto) 0 0-0.2 10 ^3/uL Nucleated Red Blood Cells 0.0 % Sodium Level 138 136-145 mmol/L Potassium Level 4.0 3.5-5.1 mmol/L Chloride Level 100 98-107 mmol/L Carbon Dioxide Level 27 20-31 mmol/L Anion Gap 11 5-15 Blood Urea Nitrogen 6 L 9-23 mg/dL Creatinine 1.02 0.700-1.30 mg/dL Glomerular Filtration Rate Calc 94 >90 mL/min BUN/Creatinine Ratio 5.9 L 10.0-20.0 Serum Glucose 89 74-106 mg/dL Calcium Level 9.1 8.7-10.4 mg/dL Total Bilirubin 1.1 H 0.2-1.0 mg/dL Aspartate Amino Transferase (AST) 85 H 13-40 U/L Alanine Aminotransferase (ALT) 121 H 7-40 U/L Alkaline Phosphatase 68 46-116 U/L Total Protein 7.3 5.7-8.2 g/dL Albumin 4.2 3.2-4.8 g/dL Differential Total Cells Counted 100.0 100 Neutrophils % (Manual) 59 37.0-80.0 Band Neutrophils % (Manual) 1 Lymphocytes % (Manual) 18 10.0-50.0 Monocytes % (Manual) 18 H 0-12 Eosinophils % (Manual) 3 0-7 Basophils % (Manual) 0 0.0-2.0 Metamyelocytes % (manual) 0 Myelocytes % (Manual) 0 Promyelocytes % (Manual) 0 Blast Cells % (Manual) 0 Reactive Lymphocytes 1 Platelet Estimate Adequate Red Blood Cell Morphology Normal Prothrombin Time 11.4 9.3-11.8 sec Prothrombin Time INR 1.08 0.9-1.15 Activated Partial Thromboplast Time 24.9 24.5-34.5 SEC Lactic Acid Level 1.1 0.4-2.0 mmol/L Triglycerides Level 80 < 150 mg/dL Cholesterol Level 199 < 200 mg/dL LDL Cholesterol 120 H < 100 mg/dL HDL Cholesterol 69 H 40-59 mg/dL Lipase 37 12-53 U/L Urine Color Yellow Yellow Urine Clarity Clear Clear Urine pH 6.5 5.0-9.0 Urine Specific Leroy 1.014 1.001-1.035 Urine Protein Negative Negative Urine Ketones Negative Negative Urine Blood Negative Negative /uL Urine Nitrite Negative Negative Urine Bilirubin Negative Negative Urine Urobilinogen Normal Negative mg/dL Urine Leukocyte Esterase Negative Negative /uL Urine RBC 1 0 - 3 /hpf Urine Microscopic WBC < 1 0-3 /HPF Urine Squamous Epithelial Cells None seen <5 /hpf Urine Bacteria None seen None Seen /hpf Urine Glucose Normal Normal mg/dL Urine Opiates Screen Neg NEGATIVE Urine Fentanyl Screen Neg NEGATIVE Urine Barbiturates Screen Neg NEGATIVE Urine Phencyclidine Screen Neg NEGATIVE Urine Amphetamines Screen Neg NEGATIVE Urine Benzodiazepines Screen Neg NEGATIVE Urine Cocaine Screen Neg NEGATIVE Urine Cannabinoids Screen Neg NEGATIVE Test 05/30/25 11:11 Range/Units Lactate Dehydrogenase 197 120-246 U/L Hepatitis A IgM Antibody Negative Hepatitis B Surface Antigen Negative Negative Hepatitis B Core IgM Antibody Negative Negative Hepatitis C Antibody Negative Negative Imaging: CT abdomen pelvis IMPRESSION: 1. Small hiatal hernia with thickened wall of the distal esophagus. May represent esophagitis from recurrent reflux. 2. Pancreas appears normal 3. Hepatic steatosis 4. 2 cm left renal cyst 5. No findings to suggest bowel obstruction. 6. No calcified gallstones. Assessment: Abdominal pain History of hiatal hernia Intractable nausea and vomiting Diarrhea History of pancreatitis History of amphetamine and marijuana use Plan: Discussed with Dr. Tadeo - Pt will be scheduled for an EGD tomorrow 06/02/2025. Pt was informed of the risks (bleeding, infection, perforation, reaction to sedation medications and cardiopulmonary arrest) and benefit and is agreeable to undergo the procedures. Stool studies pending Protonix and Zofran Plan discussed with patient and RN Thank you for this consult Date of Service: Jun 01, 2025 Billing Provider: MAXINE CHAUDHRY Common Visit Codes: CONSULT ONLY Consultation Codes: [id number] CONSULT <60MIN MAXINE CHAUDHRY Jun 01, 2025 14:07
[2025-06-01 17:27] VITALS: BP 153/101; PULSE 62; RESP 18; TEMP 98.2; O2SAT 98
[2025-06-01] MEDS: LOSARTAN POTASSIUM 25 MG TAB PO ONE (18:11)
--- NOTE | 2025-06-01 20:12 | DVHPNRES ---
Progress Note Date Seen: Jun 01, 2025 Resident Creating Document: LAYNE MAC RESIDENT Medical Necessity Reason Pt with a Central, PICC or Fol: No Subjective Review of Systems 44-year-old male with past medical history of chronic pancreatitis on lipase, IBS, hiatal hernia (7 cm) presented to the ER with the complaints of epigastric,left upper and left lower quadrant pain since last 2 weeks, associated with intractable nausea and vomiting. He reports the pain aggravates on eating especially with dry food, after vomiting and relieves by leaning forward and taking ibuprofen and Tylenol. The pain radiates to umbilicus before bowel movement. The patient describes the pain starts gradually and becomes sharp, currently 7/10 in intensity. He describes the vomiting is bilious and greenish in color, not mixed with blood The patient has recently done a colonoscopy with a single polyp, which was removed, with no other abnormalities. He has done CT scan of the abdomen with gastro group [facility] [place], which was unremarkable except hiatal hernia. The patient measures his blood pressure at home which is high systolic in 140s and diastolic in 110s. 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 The patient reports losing 20 lb weight unintentionally within last 2 months. He reports having difficulty swallowing dry food. He reports having dark stool, with a black spots floating on the toilet water. But the stool is not tarry black. Past surgical history: Appendectomy, Right hand metal placed due to right 4th metacarpal fracture, Home medications: Pancrelipase (Creon), pantoprazole Allergies: None Smoking history: Quit 17 years ago, before quitting 5 pack years Methamphetamine: Quit 7 years ago, before quitting occasional Marijuana: Quit 2 months ago, before quitting occasionally since age 19. Alcohol: Drinks over the weekends 2 cans at a time. The patient was seen and examined at bedside today. He reports feeling nausea. However, his abdominal pain improved. No new complaints reported today. Objective vital signs Vital Sign Date Time Temp Pulse Resp B/P (MAP) Pulse Ox O2 Delivery O2 Flow Rate FiO2 05/31/25 16:29 98.1 64 17 155/107 (123) 99 98.1 05/31/25 08:15 Room Air* 0 21 Total Intake and Output 05/30/25 05/30/25 05/31/25 15:00 23:00 07:00 Intake Total 1000 ml Balance 1000 ml medications Current Medications Medications Dose Ordered Sig/Christiano Route Start Time Stop Time Status Last Admin Dose Admin Sodium Chloride 1,000 ml @ 120 mls/hr Q8H20M IV 05/30/25 15:45 05/31/25 09:35 120 MLS/HR Morphine Sulfate 2 mg Q4HPRN PRN IV 05/30/25 15:45 05/31/25 15:01 2 MG Ondansetron HCl 4 mg Q8HPRN PRN IV 05/30/25 15:45 05/31/25 00:48 4 MG Pantoprazole Sodium 40 mg DAILY IV 05/31/25 10:00 05/31/25 09:26 40 MG Amlodipine Besylate 5 mg DAILY PO 05/31/25 10:00 05/31/25 12:49 5 MG Sucralfate 1 gm TID@0600,1130,2200 PO 05/31/25 11:30 05/31/25 12:48 1 GM Metoclopramide HCl 5 mg Q8HPRN PRN IV 05/31/25 11:00 Examination laboratory and microbiology Laboratory Tests 05/31/25 07:05 Test 05/31/25 07:05 Range/Units Serum Glucose 86 74-106 mg/dL Labs and/or images reviewed: Labs reviewed by me, Image(s) reviewed by me Problem List/Assessment/Plan Problem List/Assessment/Plan Objective vital signs Vital Sign Date Time Temp Pulse Resp B/P (MAP) Pulse Ox O2 Delivery O2 Flow Rate FiO2 06/01/25 19:25 72 18 152/110 06/01/25 17:27 98.2 98 98.2 06/01/25 08:00 Room Air* 0 21 Total Intake and Output 05/31/25 05/31/25 06/01/25 15:00 23:00 07:00 Intake Total 1000 ml 1300 ml 650 ml Balance 1000 ml 1300 ml 650 ml medications Current Medications Medications Dose Ordered Sig/Christiano Route Start Time Stop Time Status Last Admin Dose Admin Morphine Sulfate 2 mg Q4HPRN PRN IV 05/30/25 15:45 06/01/25 19:25 2 MG Ondansetron HCl 4 mg Q8HPRN PRN IV 05/30/25 15:45 05/31/25 00:48 4 MG Pantoprazole Sodium 40 mg DAILY IV 05/31/25 10:00 06/01/25 09:41 40 MG Amlodipine Besylate 5 mg DAILY PO 05/31/25 10:00 06/01/25 09:41 5 MG Sucralfate 1 gm TID@0600,1130,2200 PO 05/31/25 11:30 06/01/25 12:07 1 GM Metoclopramide HCl 5 mg Q8HPRN PRN IV 05/31/25 11:00 Examination Exam Pt is lying on bed General Appearance: Alert, Oriented X3, Cooperative, Mild distress HEENT: Atraumatic, Mucous membranes moist/pink Respiratory: Clear to auscultation, Normal air movement, No added sounds Cardiovascular: Regular rate, Normal S1, Normal S2, No murmurs Abdominal/ : Active bowel sounds, Soft, no distention, epigastric, left upper and lower quadrants tenderness Extremities: No edema, Normal pulses, No tenderness/swelling Skin: No Significant rash, except past surgical scars Neuro: Normal speech, sensorimotor deficits none Psych/Mental Status: Mental status NL, Mood NL Nurse was there as assessment expert during examination laboratory and microbiology Laboratory Tests 06/01/25 07:02 Test 06/01/25 07:02 Range/Units Serum Glucose 89 74-106 mg/dL Labs and/or images reviewed: Labs reviewed by me, Image(s) reviewed by me Problem List/Assessment/Plan Problem List/Assessment/Plan Acute pancreatitis Gastritis with alarm symptoms IV fluid Lipase CT abdomen and pelvis Lactic acid ordered, pending results IV pantoprazole IV ondansetron for nausea and vomiting IV morphine for intractable abdominal pain CT abdomen pelvis: Hepatic steatosis, 4 mm appendicolith, hiatal hernia, no acute findings, no pancreatitis. Gallbladder ultrasound: Hepatic steatosis, no gallstones or cholecystitis. CT abdomen and pelvis with contrast : new findings: esophagitis GI consulted, EGD tomorrow on 06/01/2025. Hepatitis panel negative. Dehydration due to diarrhea secondary to gastroenteritis IV fluid Stool WBC, bacterial culture, C diff sent Hyperlipidemia Lipid profile:TG80,[id number],LDL 120, HDL 69 advise on healthy diet Undiagnosed hypertension? Monitor blood pressures and labs Initiate antihypertensive if necessary GI prophylaxis: Pantoprazole DVT prophylaxis: Not indicated, patient is ambulatory Diet: NPO Goals of care discussed with the patient for more than 27 minutes: Full code status Case discussed with , Dr. Roblero, Jhajj, patient and RN Plan discussed with: Patient, Other (RN) Plan discussed with: Patient, Other (RN) My Orders My Orders Orders - LAYNE MAC Procedure Category Date Status Time Basic Metabolic Panel LAB 06/02/25 Verified 04:00 Complete Blood Count LAB 06/02/25 Verified 04:00 Date of Service: Jun 01, 2025 Billing Provider: JUSTINA ALVAREZ MD Common Visit Codes: [id number] INP/OBS CARE(HIGH) LAYNE MAC Jun 01, 2025 20:12 JUSTINA ALVAREZ MD Jun 06, 2025 20:21
[2025-06-01 20:50] VITALS: BP 149/110; PULSE 72; RESP 16; TEMP 97.3; O2SAT 97
[2025-06-02 04:41] VITALS: BP 143/87; PULSE 79; RESP 19; TEMP 98.1; O2SAT 97
[2025-06-02 04:55] LABS: Hematocrit 44.6 % (41.0-53.0); Hemoglobin 15.4 g/dL (13.5-17.5); Mean Corpuscular Hemoglobin 33.0 pg (28.0-32.0); Mean Corpuscular Volume 95.7 fL (80.0-100.0)
[2025-06-02 05:14] LABS: Anion Gap 8 (5-15); Carbon Dioxide 28 mmol/L (20-31); Chloride 101 mmol/L (98-107); Potassium 4.3 mmol/L (3.5-5.1); Sodium 137 mmol/L (136-145)
[2025-06-02 05:15] LABS: Calcium 9.4 mg/dL (8.7-10.4)
[2025-06-02 05:20] LABS: BUN/Creatinine Ratio 4.7 (10.0-20.0); Glucose 101 mg/dL (74-106)
[2025-06-02 05:24] LABS: Blood Urea Nitrogen 5 mg/dL (9-23)
[2025-06-02 08:17] VITALS: BP 115/113; PULSE 62; RESP 20; TEMP 97.7; O2SAT 96
[2025-06-02 08:50] LABS: Total Cells Counted 100.0 (100)
[2025-06-02 12:48] VITALS: BP 144/105; PULSE 80; RESP 18; TEMP 98.1; O2SAT 94
[2025-06-02] MEDS ORDERED: LIDOCAINE 1% INJ PF 5ML AMP ONE (13:56)
[2025-06-02] MEDS ORDERED: ONDANSETRON HCL 4 MG/2 ML VIAL ONE (13:56)
[2025-06-02] MEDS ORDERED: METOCLOPRAMIDE HCL 5MG/ml INJ 2ml VIAL ONE (13:56)
[2025-06-02] MEDS ORDERED: PROPOFOL 10 MG/ML 20 ML IV ONE (13:59)
[2025-06-02 14:05] VITALS: RESP 13; O2SAT 93
--- NOTE | 2025-06-02 14:07 | DVHOP2 ---
Operative Report DATE OF OPERATION: 06/02/25 PROCEDURE: Upper Endoscopy with biopsy. PREOPERATIVE INDICATION: The patient is a 44 -year-old male undergoing endoscopy for chronic GERD and epigastric pain POSTOPERATIVE DIAGNOSES: 1. 6 cm sliding-type hiatal hernia with no significant esophagitis at this time 2. Mild gastritis of the proximal stomach and mild to moderate duodenitis of the duodenal bulb and postbulbar area PROCEDURE PERFORMED BY: Rod Tadeo GI NURSE: Kristyn SCOPE: Olympus videoendoscope. ASA CLASS: 3 PREOPERATIVE MEDICATIONS: Mac sedation, Chandan kang PROCEDURE IN DETAIL: After obtaining an informed consent, the patient was placed on left lateral decubitus position. The patient was then sedated with the above medications. A bite block was placed between his teeth. The endoscope was then passed through the oropharynx, into the esophagus, and through the stomach and pylorus up to the second and third part of the duodenum. The endoscope was then withdrawn. The 2nd and 3rd part of the duodenal were normal. Duodenal bulb and postbulbar area showed [id number] duodenitis with some hyperemia The pre-pyloric area antrum and body showed minimal gastritis. On retroflexion the patient had mild gastropathy of the proximal stomach, a hiatal hernia was noted. Duodenal and gastric biopsies were obtained. The endoscope was then withdrawn into the distal esophagus where the patient had a 6-7 cm sliding-type hiatal hernia There was no significant erosive esophagitis. Patient did have some angulation of the distal esophagus above the hiatal hernia The remaining distal and proximal esophagus and oropharynx were unremarkable The patient tolerated the procedure well without difficulty. COMPLICATIONS : None SPECIMENS: Duodenal biopsies Gastric biopsies DISPOSITION: Transfer back to the floor Stable PLAN: 1. Await for biopsy result 2. Will place pt on Protonix 40 mg bid 3. Resume GI soft diet advance as tolerated 4. Carafate 1 g p.o. twice a day 5. DC aspirin NSAIDs smoking alcohol 6. Outpatient follow up with me to review results discuss further management including the option of an elective Evangelist fundoplication ROD TADEO MD Jun 02, 2025 14:07
[2025-06-02 17:00] VITALS: BP 144/105; PULSE 78; RESP 20; TEMP 98; O2SAT 98
--- NOTE | 2025-06-02 18:43 | DVHPNRES ---
Progress Note Date Seen: Jun 02, 2025 Resident Creating Document: LAYNE MAC RESIDENT Medical Necessity Reason Pt with a Central, PICC or Fol: No Subjective Review of Systems 44-year-old male with past medical history of chronic pancreatitis on lipase, IBS, hiatal hernia (7 cm) presented to the ER with the complaints of epigastric,left upper and left lower quadrant pain since last 2 weeks, associated with intractable nausea and vomiting. He reports the pain aggravates on eating especially with dry food, after vomiting and relieves by leaning forward and taking ibuprofen and Tylenol. The pain radiates to umbilicus before bowel movement. The patient describes the pain starts gradually and becomes sharp, currently 7/10 in intensity. He describes the vomiting is bilious and greenish in color, not mixed with blood The patient has recently done a colonoscopy with a single polyp, which was removed, with no other abnormalities. He has done CT scan of the abdomen with gastro group [facility], which was unremarkable except hiatal hernia. The patient measures his blood pressure at home which is high systolic in 140s and diastolic in 110s. 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 The patient reports losing 20 lb weight unintentionally within last 2 months. He reports having difficulty swallowing dry food. He reports having dark stool, with a black spots floating on the toilet water. But the stool is not tarry black. Past surgical history: Appendectomy, Right hand metal placed due to right 4th metacarpal fracture, Home medications: Pancrelipase (Creon), pantoprazole Allergies: None Smoking history: Quit 17 years ago, before quitting 5 pack years Methamphetamine: Quit 7 years ago, before quitting occasional Marijuana: Quit 2 months ago, before quitting occasionally since age 19. Alcohol: Drinks over the weekends 2 cans at a time. The patient was seen and examined at bedside today. The patient reports feeling better. He was scheduled for EGD later today. No new complaints reported. Objective vital signs Vital Sign Date Time Temp Pulse Resp B/P (MAP) Pulse Ox O2 Delivery O2 Flow Rate FiO2 06/02/25 17:00 98.0 78 20 144/105 (118) 98 98.0 06/02/25 14:05 Room Air 06/02/25 14:05 93 06/02/25 08:00 0 Total Intake and Output 06/01/25 06/01/25 06/02/25 15:00 23:00 07:00 Intake Total 1500 ml 300 ml Balance 1500 ml 300 ml medications Current Medications Medications Dose Ordered Sig/Christiano Route Start Time Stop Time Status Last Admin Dose Admin Morphine Sulfate 2 mg Q4HPRN PRN IV 05/30/25 15:45 06/02/25 16:01 2 MG Ondansetron HCl 4 mg Q8HPRN PRN IV 05/30/25 15:45 05/31/25 00:48 4 MG Amlodipine Besylate 5 mg DAILY PO 05/31/25 10:00 06/02/25 10:52 5 MG Metoclopramide HCl 5 mg Q8HPRN PRN IV 05/31/25 11:00 Sucralfate 1 gm BID@0600,2200 PO 06/02/25 22:00 Pantoprazole Sodium 40 mg BID@0600,1700 PO 06/03/25 06:00 Examination Pt is lying on bed General Appearance: Alert, Oriented X3, Cooperative, Mild distress HEENT: Atraumatic, Mucous membranes moist/pink Respiratory: Clear to auscultation, Normal air movement, No added sounds Cardiovascular: Regular rate, Normal S1, Normal S2, No murmurs Abdominal/ : Active bowel sounds, Soft, no distention, no tenderness Extremities: No edema, Normal pulses, No tenderness/swelling Skin: No Significant rash, except past surgical scars Neuro: Normal speech, sensorimotor deficits none Psych/Mental Status: Mental status NL, Mood NL Nurse was there as pressroom foreman during examination laboratory and microbiology Laboratory Tests 06/02/25 04:45 Test 06/02/25 04:45 Range/Units Serum Glucose 101 74-106 mg/dL Labs and/or images reviewed: Labs reviewed by me, Image(s) reviewed by me Problem List/Assessment/Plan Problem List/Assessment/Plan Acute intractable abdominal pain likely due to acute gastritis Sliding type Hiatal hernia Severe hepatic steatosis Acute pancreatitis, ruled Gastritis with alarm symptoms Dehydration due to diarrhea secondary to gastroenteritis Lipase mildly elevated, IV ondansetron for nausea and vomiting IV morphine for intractable abdominal pain CT abdomen pelvis: Hepatic steatosis, 4 mm appendicolith, hiatal hernia, no acute findings, no pancreatitis. Gallbladder ultrasound: Hepatic steatosis, no gallstones or cholecystitis. CT abdomen and pelvis with contrast : new findings: esophagitis GI consulted, EGD completed today on 06/02/2025: No significant esophagitis, hiatal hernia and duodenitis. Continue p.o. pantoprazole b.i.d., Carafate 1 g p.o. b.i.d Hepatitis panel negative. Hyperlipidemia advised on healthy diet Hypertensive heart disease started on amlodipine GI prophylaxis: Pantoprazole DVT prophylaxis: Not indicated, patient is ambulatory Diet: Advanced as tolerated Goals of care discussed with the patient for more than 27 minutes: Case discussed with Dr. Alvarez Plan discussed with: Patient, Other (RN) My Orders My Orders Orders - LAYNE MAC Procedure Category Date Status Time Sucralfate Susp PHA 06/02/25 In Process (Carafate Susp) 22:00 Pantoprazole Tablet PHA 06/03/25 In Process (Protonix Tablet) 06:00 Notify Provider NOTICE 06/02/25 Transmitted Malnutrition 17:40 Nutritional NOURISH 06/02/25 Transmitted Supplements 17:40 Dietary NOTICE 06/02/25 Transmitted Recommendations 17:40 Dietary Evaluation Review Recommendations by RD: Protein Supplementation Comments: 1) Initiate Ensure High Protein qd 2) Advance to cardiac diet when medically feasible 3) Encourage optimal PO intake 4) Follow-up with gastroenterology and cardiology 5) Continue to monitor I&O, labs, and skin integrity Expected Outcomes/Goals: 1) appetite and labs to improve 2) diet to advance 3) GI symptoms to resolve 4) f/u in 3-5 days Date of Service: Jun 02, 2025 Billing Provider: JUSTINA ALVAREZ MD Common Visit Codes: [id number] INP/OBS CARE(MOD) LAYNE MAC Jun 02, 2025 18:43 ALCON SANCHEZ RESIDENT Jun 02, 2025 19:27 JUSTINA ALVAREZ MD Jun 06, 2025 20:21
[2025-06-02] MEDS: SUCRALFATE 1 GM/10 ML ORAL SUSP PO SCH (20:43)
[2025-06-02 21:00] VITALS: BP 133/99; PULSE 82; RESP 17; TEMP 97.6; O2SAT 97
[2025-06-03 05:00] VITALS: BP 130/89; PULSE 82; RESP 19; TEMP 97.8; O2SAT 98
[2025-06-03 05:53] LABS: Hematocrit 44.7 % (41.0-53.0); Hemoglobin 15.3 g/dL (13.5-17.5); Mean Corpuscular Hemoglobin 32.8 pg (28.0-32.0); Mean Corpuscular Volume 95.5 fL (80.0-100.0)
[2025-06-03 06:15] LABS: Chloride 100 mmol/L (98-107); Potassium 4.2 mmol/L (3.5-5.1); Sodium 138 mmol/L (136-145)
[2025-06-03 06:18] LABS: Anion Gap 11 (5-15); Carbon Dioxide 27 mmol/L (20-31)
[2025-06-03 06:19] LABS: Calcium 9.6 mg/dL (8.7-10.4)
[2025-06-03] MEDS: PANTOPRAZOLE 40 MG TAB PO SCH (06:20)
[2025-06-03 06:24] LABS: BUN/Creatinine Ratio 7.1 (10.0-20.0); Glucose 97 mg/dL (74-106)
[2025-06-03 06:43] LABS: Blood Urea Nitrogen 8 mg/dL (9-23)
[2025-06-03 08:11] LABS: Total Cells Counted 100.0 (100)
[2025-06-03 08:12] LABS: RBC Morphology Normal
[2025-06-03 08:47] VITALS: BP 150/101; PULSE 98; RESP 12; TEMP 98.1; O2SAT 98
[2025-06-03] MEDS ORDERED: SUCR1SUS26 PO (10:02)
[2025-06-03] MEDS ORDERED: AML5T PO (10:02)
[2025-06-03] MEDS ORDERED: PANT40T PO (10:02)
[2025-06-03 12:54] VITALS: BP 128/93; PULSE 74; RESP 16; TEMP 97.5; O2SAT 95
[2025-06-03 13:00] VITALS: BP 128/93; PULSE 74; RESP 16; TEMP 97.5; O2SAT 95
[2025-06-03 13:05] VITALS: TEMP 36.4
--- NOTE | 2025-06-03 14:13 | DVHDSRES ---
Discharge Summary Date of Admission Resident Creating Document: BOB INIGUEZ RESIDENT May 30, 2025 at 15:42 Date of Discharge: Jun 03, 2025 Admitting Diagnosis Pancreatitis Labs/Diagnostic Data: Laboratory Results Test 06/03/25 07:30 06/03/25 05:24 06/01/25 07:02 05/30/25 17:17 Stool for White Cells Rare White Blood Count 4.8 10^3/uL (4.4-10.8) Red Blood Count 4.68 10^6/uL (4.5-5.90) Hemoglobin 15.3 g/dL (13.5-17.5) Hematocrit 44.7 % (41.0-53.0) Mean Corpuscular Volume 95.5 fL (80.0-100.0) Mean Corpuscular Hemoglobin 32.8 pg (28.0-32.0) Mean Corpuscular Hemoglobin Concent 34.3 g/dL (32.0-36.0) Red Cell Distribution Width 14.3 % (11.8-14.3) Platelet Count 177 10^3/uL (140-450) Mean Platelet Volume 9.0 fL (6.9-10.8) Neutrophils (%) (Auto) % (37.0-80.0) Lymphocytes (%) (Auto) % (10.0-50.0) Monocytes (%) (Auto) % (0.0-12.0) Basophils (%) (Auto) % (0.0-2.0) Neutrophils # (Auto) 10 ^3/uL (1.6-8.6) Lymphocytes # (Auto) 10 ^3/uL (0.4-5.4) Monocytes # (Auto) 10 ^3/uL (0-1.3) Differential Total Cells Counted 100.0 (100) Neutrophils % (Manual) 60 (37.0-80.0) Band Neutrophils % (Manual) 1 Lymphocytes % (Manual) 15 (10.0-50.0) Monocytes % (Manual) 20 (0-12) Eosinophils % (Manual) 2 (0-7) Basophils % (Manual) 0 (0.0-2.0) Metamyelocytes % (manual) 0 Myelocytes % (Manual) 0 Promyelocytes % (Manual) 0 Blast Cells % (Manual) 0 Reactive Lymphocytes 2 Platelet Estimate Adequate Red Blood Cell Morphology Normal Sodium Level 138 mmol/L (136-145) Potassium Level 4.2 mmol/L (3.5-5.1) Chloride Level 100 mmol/L (98-107) Carbon Dioxide Level 27 mmol/L (20-31) Anion Gap 11 (5-15) Blood Urea Nitrogen 8 mg/dL (9-23) Creatinine 1.13 mg/dL (0.700-1.30) Glomerular Filtration Rate Calc 83 mL/min (>90) BUN/Creatinine Ratio 7.1 (10.0-20.0) Serum Glucose 97 mg/dL (74-106) Calcium Level 9.6 mg/dL (8.7-10.4) Eosinophils (%) (Auto) 2.5 % (0.0-7.0) Eosinophils # (Auto) 0.1 10 ^3/uL (0-0.8) Basophils # (Auto) 0 10 ^3/uL (0-0.2) Nucleated Red Blood Cells 0.0 % Total Bilirubin 1.1 mg/dL (0.2-1.0) Aspartate Amino Transferase (AST) 85 U/L (13-40) Alanine Aminotransferase (ALT) 121 U/L (7-40) Alkaline Phosphatase 68 U/L (46-116) Total Protein 7.3 g/dL (5.7-8.2) Albumin 4.2 g/dL (3.2-4.8) Prothrombin Time 11.4 sec (9.3-11.8) Prothrombin Time INR 1.08 (0.9-1.15) Activated Partial Thromboplast Time 24.9 SEC (24.5-34.5) Lactic Acid Level 1.1 mmol/L (0.4-2.0) Triglycerides Level 80 mg/dL (< 150) Cholesterol Level 199 mg/dL (< 200) LDL Cholesterol 120 mg/dL (< 100) HDL Cholesterol 69 mg/dL (40-59) Lipase 37 U/L (12-53) Test 05/30/25 11:15 05/30/25 11:11 Urine Color Yellow (Yellow) Urine Clarity Clear (Clear) Urine pH 6.5 (5.0-9.0) Urine Specific [place] 1.014 (1.001-1.035) Urine Protein Negative (Negative) Urine Ketones Negative (Negative) Urine Blood Negative /uL (Negative) Urine Nitrite Negative (Negative) Urine Bilirubin Negative (Negative) Urine Urobilinogen Normal mg/dL (Negative) Urine Leukocyte Esterase Negative /uL (Negative) Urine RBC 1 /hpf (0 - 3) Urine Microscopic WBC < 1 /HPF (0-3) Urine Squamous Epithelial Cells None seen /hpf (<5) Urine Bacteria None seen /hpf (None Seen) Urine Glucose Normal mg/dL (Normal) Urine Opiates Screen Neg (NEGATIVE) Urine Fentanyl Screen Neg (NEGATIVE) Urine Barbiturates Screen Neg (NEGATIVE) Urine Phencyclidine Screen Neg (NEGATIVE) Urine Amphetamines Screen Neg (NEGATIVE) Urine Benzodiazepines Screen Neg (NEGATIVE) Urine Cocaine Screen Neg (NEGATIVE) Urine Cannabinoids Screen Neg (NEGATIVE) Lactate Dehydrogenase 197 U/L (120-246) Hepatitis A IgM Antibody Negative Hepatitis B Surface Antigen Negative (Negative) Hepatitis B Core IgM Antibody Negative (Negative) Hepatitis C Antibody Negative (Negative) Other Laboratory Tests 06/03/25 05:24 Brief Hx & Hospital Course: This is a 44-year-old male with past medical history of chronic pancreatitis on lipase, IBS, hiatal hernia (7 cm) presented to the ER with the complaints of epigastric,left upper and left lower quadrant pain since last 2 weeks, associated with intractable nausea and vomiting. He reported the pain aggravated on eating especially with dry food, after vomiting and relieved by leaning forward and taking ibuprofen and Tylenol. The pain radiated to umbilicus before bowel movement. The patient described the pain started gradually and became sharp, currently 7/10 in intensity. He described the vomiting is bilious and greenish in color, not mixed with blood The patient had recently done a colonoscopy with a single polyp, which was removed, with no other abnormalities. He had done CT scan of the abdomen with [facility], which was unremarkable except for hiatal hernia. The patient measured his blood pressure at home which is high systolic in 140s and diastolic in 110s. The patient reported losing 20 lb weight unintentionally within last 2 months. He reported having difficulty swallowing dry food. He reports having dark stool, with a black spots floating on the toilet water. But the stool is not tarry black. Past surgical history: Appendectomy, Right hand metal placed due to right 4th metacarpal fracture, Home medications: Pancrelipase (Creon), pantoprazole Allergies: None Smoking history: Quit 17 years ago, before quitting 5 pack years Methamphetamine: Quit 7 years ago, before quitting occasional Marijuana: Quit 2 months ago, before quitting occasionally since age 19. Alcohol: Drinks over the weekends 2 cans at a time. Throughout the patient's hospitalization he had significant clinical improvement from admission, he was treated with IV Protonix, a CT abdomen of the pelvis showed liver steatosis, hiatal hernia, rule out pancreatitis. Lipase levels were mildly elevated and down trended. A repeat CT abdomen with contrast show distal esophagitis. GI doctor was consulted which performed an EGD which demonstrated a hiatal hernia, mild gastritis and qvja-je-[id number] duodenitis. Patient was started back on Protonix p.o. b.i.d. and Carafate p.o. b.i.d.. Patient stated having improvement with these medications. He was comprehensively counseled on lifestyle modifications such as avoiding spicy food, small frequent meals, last meal to be had 2-3 hours before bedtime. General Appearance: Alert, Oriented X3, Cooperative, Mild distress HEENT: Atraumatic, Mucous membranes moist/pink Respiratory: Clear to auscultation, Normal air movement, No added sounds Cardiovascular: Regular rate, Normal S1, Normal S2, No murmurs Abdominal/ : Active bowel sounds, Soft, no distention, no tenderness Extremities: No edema, Normal pulses, No tenderness/swelling Skin: No Significant rash, except past surgical scars Neuro: Normal speech, sensorimotor deficits none Psych/Mental Status: Mental status NL, Mood NL Nurse was there as home health care provider during examination Patient will be discharge home, will continue home medications as prescribed. He will continue taking Protonix 40 mg p.o. b.i.d., Carafate 1 g p.o. b.i.d., amlodipine 5 mg p.o. q.d., we will consulted on lifestyle modifications. Follow- up with PCP in 1-2 weeks and with GI doctor from [facility]. Patient verbalized understanding and agree with the DC plan, we spent over 30 minutes explaining the plan. Case was discussed with Dr. Arreola Consults/Reason for consult GI doctor was consulted due to esophagitis Operations or Procedures [address] [address] Ph: [phone] DIAGNOSTIC IMAGING Diagnostic Imaging Report : [id number] Signed PATIENT: LEENA AMOSACCT: [id number] UNIT: [id number] : 1980 LOC: OVERFLOW ROOM / BED: 1010-ER / A AGE / SEX: 44 / M ADM STATUS: ADM IN SERVICE 1618 ORDERING PHYSICIAN: LAYNE MAC RESIDENT PROCEDURE(s): ABPL - CT AB PEL WO CON-NO ORAL OR IV REASON: r/o acute pancreatitis ORDER NUMBER(s): [id number], ACCESSION NUMBER(s): [id number] Indication: r/o acute pancreatitis Technique: CT axial images of the abdomen and pelvis are obtained without contrast. Coronal and sagittal reformats were obtained. Radiation Dose Information: CTDI volume is 15.94 mGy. Dose-length product is 882.69 mGy*cm Comparison: None FINDINGS: There is limited interpretation of the abdomen and pelvis without administration of intravenous contrast. The lung bases demonstrate no pleural effusion. Adrenal glands, spleen, pancreas unremarkable in shape. Severe hepatic steatosis. No CT evidence for cholelithiasis. There is no hydronephrosis/ nephrolithiasis. Left renal cyst measuring 2.5 cm. Small hiatal hernia. Stomach partially distended. Small bowel loops are normal in caliber. Moderate volume stool in the colon. No secondary signs for appendicitis. Appendicolith measuring 4 mm in diameter. Bladder partially distended. No free pelvic fluid. No inguinal lymphadenopathy. No aggressive osseous process. IMPRESSION: Limited evaluation without contrast. No CT imaging features of acute pancreatitis. Severe hepatic steatosis. 4 mm appendicolith. No evidence for acute appendicitis. Hiatal hernia. Other findings as described. ATED BY: SHAHNAZ POZO MD DICTATED DATE/TIME: 05/30/251741 SIGNED BY: SHAHNAZ POZO MD SIGNED DATE/TIME: 05/30/251741 CC: [place] [address] Ph: [phone] DIAGNOSTIC IMAGING Diagnostic Imaging Report : [id number] Signed PATIENT: LEENA AMOSACCT: [id number] UNIT: [id number] : 1980 LOC: [facility] ROOM / BED: 0286 / A AGE / SEX: 44 / M ADM STATUS: ADM IN SERVICE 1618 ORDERING PHYSICIAN: LAYNE MAC RESIDENT PROCEDURE(s): GBUS - GALLBLADDER REASON: Transaminitis ORDER NUMBER(s): [id number], ACCESSION NUMBER(s): [id number] ABDOMINAL ULTRASOUND CLINICAL HISTORY: Transaminitis TECHNIQUE: Multiple grayscale and color Doppler ultrasound images were obtained of the abdomen. WID: COMPARISON: CT abdomen pelvis from same day FINDINGS: Liver and Biliary System: Increased echogenicity, normal size measuring 16.5 cm. No focal hepatic observations. No intrahepatic bile duct dilatation. The common duct measures 0.47 cm at the rangel hepatis. The gallbladder is normal caliber without wall thickening or cholelithiasis.. Pancreas: Visualized portions are unremarkable. Kidneys: The right kidney is 11.1 cm . No hydronephrosis, increased echogenicity, shadowing stone, or focal lesion. IMPRESSION: 1. Hepatic steatosis. 2. No acute cholecystitis or biliary ductal dilatation. ATED BY: ABEL SANTIAGO MD DICTATED DATE/TIME: 05/30/251814 SIGNED BY: ABEL SANTIAGO MD SIGNED DATE/TIME: 05/30/251814 CC: [place] [address] Ph: [phone] DIAGNOSTIC IMAGING Diagnostic Imaging Report : [id number] Signed PATIENT: LEENA AMOSACCT: [id number] UNIT: [id number] : 1980 LOC: [facility] ROOM / BED: [address] [place] [address] AGE / SEX: 44 / M ADM STATUS: ADM IN SERVICE [id number] ORDERING PHYSICIAN: ALCON SANCHEZ PROCEDURE(s): ABPLIV - CT AB PEL WITH IV CON ONLY REASON: epigastric pain, dysphagia, unintentional wt loss, h/omelena ORDER NUMBER(s): [id number], ACCESSION NUMBER(s): [id number] Exam: CT CT AB PEL WITH IV CON ONLY History: epigastric pain, dysphagia, unintentional wt loss, h/omelena Comparison Study: None TECHNIQUE: Multidetector CT of the abdomen was performed from lung bases to pubic symphysis. Imaging was performed without IV contrast. Axial, coronal and sagittal multiplanar reformats were obtained from the axial data set by the technologist. Radiation Dose Information: CT Dose: CTDI volume is 9.62 mGy. Dose-length product is 610.76 mGy*cm FINDINGS: Evaluation of solid organs is limited due to lack of intravenous contrast use. Findings: Lung Bases: No acute or significant lung base finding. Normal heart size. No pleural or pericardial effusion. Liver: The liver is normal in size. No focal lesions. Findings consistent with hepatic steatosis. Gallbladder and Biliary Tree: No calcified gallstones. Spleen: Unremarkable Pancreas: The pancreas is grossly normal in appearance. Adrenal Glands: Unremarkable Kidneys: Kidneys are grossly normal without calculi or hydronephrosis. 0.5 cm left cortical cyst Bladder: Grossly unremarkable for degree of distention. Bowel: The stomach is grossly normal in appearance. Small hiatal hernia Small bowel and colon are normal in caliber and distribution. The appendix is not visualized; however, no secondary findings of acute appendicitis identified. Ascites: Absent Lymphadenopathy: No mesenteric, retroperitoneal or periportal lymphadenopathy. Abdominal Wall and Mesentery: Unremarkable. Vasculature: The visualized abdominal aorta is normal in size and caliber. Evaluation of abdominal and pelvic vessels is limited due to lack of intravenous contrast. Pelvic Organs: Unremarkable Musculoskeletal: No aggressive focal bony lesions, acute fractures or dislocation. Vertical striations noted T 11 and T12 may represent osseous hemangiomas. No compressed vertebra. Soft tissues: Unremarkable IMPRESSION: 1. Small hiatal hernia with thickened wall of the distal esophagus. May represent esophagitis from recurrent reflux. 2. Pancreas appears normal 3. Hepatic steatosis 4. 2 cm left renal cyst 5. No findings to suggest bowel obstruction. 6. No calcified gallstones. HS:Y Radiation optimization: All CT scans at this facility use at least one of these dose optimization techniques: automated exposure control mA and/or kV adjustment per patient size (includes targeted exams where dose is matched to clinical indication) or iterative reconstruction. ATED BY: AURE CUELLAR Jr., DO DICTATED DATE/TIME: 05/31/251704 SIGNED BY: AURE CUELLAR Jr., SIGNED DATE/TIME: 05/31/250 CC: Patient: LEENA AMOS Acct: [id number] : 1980 Loc: [facility] Age/Sex: 44/M Room: 0286 / Bed: A Attending Phy: LAYNE MAC RESIDENT Operative Report DATE OF OPERATION: 06/02/25 PROCEDURE: Upper Endoscopy with biopsy. PREOPERATIVE INDICATION: The patient is a 44 -year-old male undergoing endoscopy for chronic GERD and epigastric pain POSTOPERATIVE DIAGNOSES: 1. 6 cm sliding-type hiatal hernia with no significant esophagitis at this time 2. Mild gastritis of the proximal stomach and mild to moderate duodenitis of the duodenal bulb and postbulbar area PROCEDURE PERFORMED BY: Rod Siddiqui GI NURSE: Kristyn SCOPE: Olympus videoendoscope. ASA CLASS: 3 PREOPERATIVE MEDICATIONS: Mac sedation, Chandan kang PROCEDURE IN DETAIL: After obtaining an informed consent, the patient was placed on left lateral decubitus position. The patient was then sedated with the above medications. A bite block was placed between his teeth. The endoscope was then passed through the oropharynx, into the esophagus, and through the stomach and pylorus up to the second and third part of the duodenum. The endoscope was then withdrawn. The 2nd and 3rd part of the duodenal were normal. Duodenal bulb and postbulbar area showed [id number] duodenitis with some hyperemia The pre-pyloric area antrum and body showed minimal gastritis. On retroflexion the patient had mild gastropathy of the proximal stomach, a hiatal hernia was noted. Duodenal and gastric biopsies were obtained. The endoscope was then withdrawn into the distal esophagus where the patient had a 6-7 cm sliding-type hiatal hernia There was no significant erosive esophagitis. Patient did have some angulation of the distal esophagus above the hiatal hernia The remaining distal and proximal esophagus and oropharynx were unremarkable The patient tolerated the procedure well without difficulty. COMPLICATIONS : None SPECIMENS: Duodenal biopsies Gastric biopsies DISPOSITION: Transfer back to the floor Stable PLAN: 1. Await for biopsy result 2. Will place pt on Protonix 40 mg bid 3. Resume GI soft diet advance as tolerated 4. Carafate 1 g p.o. twice a day 5. DC aspirin NSAIDs smoking alcohol 6. Outpatient follow up with me to review results discuss further management including the option of an elective Evangelist fundoplication ROD SIDDIQUI MD Jun 02, 2025 14:07 DICTATED BY:ROD SIDDIQUI MD DICTATED DATE/TIME:06/02/25 140 ELECTRONICALLY SIGNED BY:ROD SIDDIQUI MD 06/02/25 140 ELECTRONICALLY CO-SIGNED BY: Condition at Discharge: Good Final Diagnosis/Problems List Acute intractable abdominal pain likely due to acute gastritis Esophagitis Sliding type Hiatal hernia Severe hepatic steatosis Acute pancreatitis, ruled out Gastritis, acute Duodenitis Dehydration due to diarrhea secondary to gastroenteritis Hyperlipidemia Primary hypertension, uncontrolled Discharge Disposition: Home Discharge Instruct/Medications Diet: Regular Activity: No Restrictions, As Tolerated Follow Up/Referral: fu with pcp in 1 week fu with gastro group in 1-2 week fu with surgeon Medications: continue protonix 40mg po bid carafete 1g po bid Scheduled Amlodipine Besylate (Norvasc Tablet), 5 MG PO DAILY Pantoprazole Sodium Sesquihydr (Pantoprazole Sodium), 1 TAB PO BID, (Reported) Pantoprazole Sodium Sesquihydr (Pantoprazole Sodium), 40 MG PO BID@0600,1700 Sucralfate (Carafate Susp), 1 GM PO BID@0600,2200 Miscellaneous Medications Pancreatic Enzymes (Pancreaze 29688-97242 Unit), PO, (Reported) Pancrelipase (Lipase-Protease- (Creon), PO, (Reported) Discharge Statement: "Patient was advised to return to the ER or call 911 if any headaches, dizziness, shortness of breath, chest pain, abdominal pain, bleeding, fevers, or worsening of medical condition. Patient was counseled about treatment plan, medications, possible side effects, patientverbalized understanding. All questions were answered to the best of my ability. This discharge took greater then 30 minutes in planning, reviewing documentation, counseling the patient, and discussing with other team members." ASSESSMENT ASSESSMENT Assessment esophagitis Date of Service: Jun 03, 2025 Billing Provider: JUSTINA ARREOLA MD Common Visit Codes: 15354-SUQ/OBS DISCH DAY >30min BOB INIGUEZ RESIDENT Jun 03, 2025 14:13 JUSTINA ARREOLA MD Jun 06, 2025 20:20
== END 2025-06-03 13:20 | disposition home or self-care (01) | DRG 241 ==
LOC: ER 10:38 → OVERFLOW 15:42 → WEST WING 17:50
PROVIDERS: ADMIT Internal Medicine Geriatric Medicine; ATTEND Internal Medicine Geriatric Medicine
PROC: 0DB68ZX Excision of Stomach, Via Natural or Artificial Opening Endoscopic, Diagnostic (ICD-10-PCS; 2025-06-02)
PROC: 0DB98ZX Excision of Duodenum, Via Natural or Artificial Opening Endoscopic, Diagnostic (ICD-10-PCS; principal; 2025-06-02 13:52)
DX: K29.70 Gastritis, unspecified, without bleeding (principal); K29.80 Duodenitis without bleeding; K21.00 Gastro-esophageal reflux disease with esophagitis, without bleeding; K44.9 Diaphragmatic hernia without obstruction or gangrene; K76.0 Fatty (change of) liver, not elsewhere classified; I10 Essential (primary) hypertension; K86.1 Other chronic pancreatitis; N28.1 Cyst of kidney, acquired; E78.5 Hyperlipidemia, unspecified; E86.0 Dehydration; K52.9 Noninfective gastroenteritis and colitis, unspecified; Z90.49 Acquired absence of other specified parts of digestive tract; Z87.891 Personal history of nicotine dependence
CPT/HCPCS: 36415; 43239; 74176; 74177; 76705; 80048; 80053; 80061; 80074; 80307; 81001; 83605; 83615; 83690; 85007; 85025; 85027; 85048; 85610; 85730; G0378; J2405; J2470; J2704